=== PATIENT | male | born 1955 | race Caucasian/White ===

== ENCOUNTER 2021-01-18 22:15 | Inpatient (IN) | payer MEDICARE ==
[~2021-01-18] VITALS: Ht 180.3 cm; Wt 52.2 kg
[2021-01-18 22:39] LABS: BASOPHILS % (AUTO) 0.3 % (0.0-5.0); EOSINOPHILS % (AUTO) 0.3 % (0.0-8.0); HEMATOCRIT 47.9 % (42-54); LYMPHOCYTES % (AUTO) 3.1 % (21.0-51.0); MEAN CORPUSCULAR HEMOGLOBIN 30.5 pg (27.0-33.0); MEAN CORPUSCULAR HGB CONC 36.5 g/dL (32.0-36.0); MEAN CORPUSCULAR VOLUME 83.6 fL (79-99); MONOCYTES % (AUTO) 4.4 % (3.0-13.0); NEUTROPHILS % (AUTO) 91.5 % (40.0-77.0); PLATELET COUNT (AUTO) 150 K/uL (130-400); RED BLOOD CELL COUNT(AUTO) 5.73 MIL/uL (4.50-6.20); WHITE BLOOD COUNT (AUTO) 11.7 K/uL (4.8-10.8)
[2021-01-18] MEDS ORDERED: METOCLOPRAMIDE 10 MG/2 ML VIAL ONE (22:44)
[2021-01-18] MEDS ORDERED: ONDANSETRON 4MG INJ ONE (22:44)
[2021-01-18] MEDS ORDERED: 0.9%NACL 50ML 50 ML IV ONE (22:45)
[2021-01-18 22:47] LABS: ABG BASE EXCESS 1.5 mmol/L (-2.0-3.0); ABG HCO3 25.9 mmol/L (21.0-28.0); ABG OXYGEN SATURATION 93.1 % (95.0-99.0); ABG PCO2 40 mmHg (35-48)
[2021-01-18 22:56] LABS: CREATININE 0.8 mg/dL (0.5-1.5); POTASSIUM 3.4 mmol/L (3.5-5.1)
[2021-01-18 22:58] LABS: INR 1.1 (0.85-1.15); PROTHROMBIN TIME 11.9 SEC (9.6-11.6)
[2021-01-18 23:00] LABS: PARTIAL THROMBOPLASTIN TIME 22.4 SEC (26.3-35.5)
[2021-01-18 23:01] LABS: ALBUMIN 4.2 g/dL (3.5-5.0); BILIRUBIN,TOTAL 1.5 mg/dL (0.2-1.0); TOTAL PROTEIN, SERUM 7.7 g/dL (6.0-8.3)
[2021-01-19] MEDS ORDERED: ASPIRIN 325 MG TABLET ONE (00:04)
[2021-01-19 00:24] LABS: APPEARANCE,URINE Clear (CLEAR); BILIRUBIN,URINE Negative (NEGATIVE); COLOR,URINE Yellow (YELLOW); GLUCOSE, URINE (UA) >=1000 mg/dL (NEGATIVE); KETONES,URINE 40 mg/dL (NEGATIVE); LEUKOCYTE ESTERASE ,URINE Negative (NEGATIVE); NITRATE,URINE Negative (NEGATIVE); OCCULT BLOOD,URINE Negative (NEGATIVE); PROTEIN,URINE Negative (NEGATIVE); UROBILINOGEN,URINE 0.2 mg/dL (0.2-1.0)
[2021-01-19 00:30] LABS: CRP QUANTITATIVE 14.3 mg/L (0.00-9.0)
[2021-01-19 00:36] LABS: BACTERIA,URINE None Seen /HPF (None Seen); RBC,URINE None Seen /HPF (0-1); WBC,URINE None Seen /HPF (0-1)
[2021-01-19] MEDS ORDERED: ONDANSETRON 4MG INJ IV PRN (01:15)
[2021-01-19] MEDS ORDERED: MAG/ALUM/SIMETH 30 ML UDCUP PO PRN (01:15)
[2021-01-19] MEDS ORDERED: LACTULOSE 20 GM/30 ML UDCUP PO PRN (01:15)
[2021-01-19] MEDS ORDERED: ALBUTEROL 0.083% 2.5 MG/3 ML INH IH PRN (01:15)
[2021-01-19] MEDS ORDERED: ERGOCALCIFEROL (VITAMIN D2) 50,000 UNIT CAPSULE PO ONE (01:15)
[2021-01-19] MEDS ORDERED: GUAIFENESIN-DM 200/20 MG 10 ML PO PRN (01:15)
[2021-01-19] MEDS ORDERED: DiphenhydrAMINE HCL 50 MG/ML VIAL IV PRN (01:15)
[2021-01-19] MEDS: LACTATED RINGERS 1000ML 1,000 ML IV SCH ×2 (01:15→11:45)
[2021-01-19] MEDS ORDERED: ACETAMINOPHEN 325 MG TAB PO PRN (01:15)
[2021-01-19] MEDS ORDERED: DIPHENHYDRAMINE HCL 25 MG CAPSULE PO PRN (01:15)
[2021-01-19] MEDS: DOXYCYCLINE 100MG+NS 250ML IV SCH ×2 (01:15→12:27)
[2021-01-19] MEDS ORDERED: NITROGLYCERIN 0.4 MG SL TAB SL PRN (01:15)
[2021-01-19] MEDS ORDERED: IOHEXOL-350 75 ML VIAL IV ONE (01:48)
[2021-01-19] MEDS ORDERED: ERGOCALCIFEROL (VITAMIN D2) 50,000 UNIT CAPSULE ONE (01:54)
[2021-01-19] MEDS ORDERED: DOXYCYCLINE 100MG+NS 250ML 250 ML IV ONE (01:55)
[2021-01-19 03:50] VITALS: BP 141/79
[2021-01-19] MEDS ORDERED: AMLO-257 PO (05:02)
[2021-01-19] MEDS ORDERED: NAPR-1141 PO (05:02)
[2021-01-19] MEDS ORDERED: HYDR-4153 PO (05:02)
[2021-01-19] MEDS ORDERED: FLUO40CA7 PO (05:02)
[2021-01-19] MEDS ORDERED: LISI1TAB53 PO (05:02)
[2021-01-19] MEDS ORDERED: PROP10TA10 PO (05:02)
[2021-01-19] MEDS ORDERED: [UNRECOGNIZED DRUG - CODE] PO (05:02)
[2021-01-19 06:15] LABS: BASOPHILS % (AUTO) 0.2 % (0.0-5.0); EOSINOPHILS % (AUTO) 1.3 % (0.0-8.0); HEMATOCRIT 43.7 % (42-54); LYMPHOCYTES % (AUTO) 3.8 % (21.0-51.0); MEAN CORPUSCULAR HEMOGLOBIN 30.4 pg (27.0-33.0); MEAN CORPUSCULAR HGB CONC 35.7 g/dL (32.0-36.0); MEAN CORPUSCULAR VOLUME 85.2 fL (79-99); MONOCYTES % (AUTO) 4.3 % (3.0-13.0); NEUTROPHILS % (AUTO) 90.1 % (40.0-77.0); PLATELET COUNT (AUTO) 148 K/uL (130-400); RED BLOOD CELL COUNT(AUTO) 5.13 MIL/uL (4.50-6.20); RED CELL DISTRIBUTION WIDTH 12.1 % (11.0-15.5); WHITE BLOOD COUNT (AUTO) 10.8 K/uL (4.8-10.8)
[2021-01-19 06:30] LABS: ALBUMIN 3.2 g/dL (3.5-5.0); CREATININE 1.1 mg/dL (0.5-1.5); POTASSIUM 3.4 mmol/L (3.5-5.1); TOTAL PROTEIN, SERUM 6.2 g/dL (6.0-8.3)
[2021-01-19] MEDS: INSULIN HUMULIN R 100 UNIT/ML 3ML SQ SCH ×4 (06:31→20:39)
[2021-01-19] MEDS ORDERED: LIDOCAINE HCL-MPF 1% 2ML VIAL IV PRN (06:45)
[2021-01-19] MEDS ORDERED: POTASSIUM CHLORIDE 20MEQ/100ML 100 ML IV PRN (06:45)
[2021-01-19] MEDS ORDERED: KCL 20 MEQ ERTAB PO PRN (06:45)
[2021-01-19 08:00] VITALS: BP 121/69
[2021-01-19] MEDS: FAMOTIDINE 20MG VIAL IV SCH ×2 (08:33→20:13)
[2021-01-19] MEDS: ASCORBIC ACID 500 MG TAB PO SCH (08:33)
[2021-01-19] MEDS: ACETYLCYSTEINE 600 MG CAPSULE PO SCH ×2 (08:33→20:14)
[2021-01-19] MEDS: ZINC SULFATE 220 CAPSULE PO SCH (08:33)
[2021-01-19] MEDS: ENOXAPARIN SODIUM 40 MG/0.4 ML SYRINGE SQ SCH (08:33)
[2021-01-19] MEDS ORDERED: IOHEXOL 350 MG/ML 100ML INFUS..BTL IV ONE (09:40)
[2021-01-19 12:00] VITALS: BP 132/87
[2021-01-19] MEDS: POTASSIUM CHLORIDE 10% ELIXIR 20 MEQ/15 ML UDCUP PO PRN (12:04)
[2021-01-19 16:00] VITALS: BP 128/71
[2021-01-19 19:46] VITALS: BP 130/58
[2021-01-19] MEDS: PROPRANOLOL HCL 10 MG TAB PO SCH (20:13)
[2021-01-19] MEDS: HYDRALAZINE 25MG TABLET PO SCH (20:13)
[2021-01-19] MEDS: ACETAMINOPHEN 325 MG TAB PO PRN (22:39)
[2021-01-19 23:43] VITALS: BP 152/72
[2021-01-20] MEDS: DOXYCYCLINE 100MG+NS 250ML IV SCH ×2 (00:43→12:47)
[2021-01-20 04:00] VITALS: BP 148/74
[2021-01-20 04:48] LABS: BASOPHILS % (AUTO) 0.3 % (0.0-5.0); EOSINOPHILS % (AUTO) 0.9 % (0.0-8.0); HEMATOCRIT 40.5 % (42-54); LYMPHOCYTES % (AUTO) 19.8 % (21.0-51.0); MEAN CORPUSCULAR HEMOGLOBIN 29.7 pg (27.0-33.0); MEAN CORPUSCULAR HGB CONC 35.1 g/dL (32.0-36.0); MEAN CORPUSCULAR VOLUME 84.7 fL (79-99); MONOCYTES % (AUTO) 10.8 % (3.0-13.0); NEUTROPHILS % (AUTO) 67.9 % (40.0-77.0); PLATELET COUNT (AUTO) 131 K/uL (130-400); RED BLOOD CELL COUNT(AUTO) 4.78 MIL/uL (4.50-6.20); WHITE BLOOD COUNT (AUTO) 5.8 K/uL (4.8-10.8)
[2021-01-20 05:14] LABS: ALBUMIN 2.9 g/dL (3.5-5.0); BILIRUBIN,TOTAL 0.8 mg/dL (0.2-1.0); CREATININE 0.9 mg/dL (0.5-1.5); TOTAL PROTEIN, SERUM 5.7 g/dL (6.0-8.3)
[2021-01-20 05:15] LABS: POTASSIUM 2.9 mmol/L (3.5-5.1)
[2021-01-20] MEDS: POTASSIUM CHLORIDE 10% ELIXIR 20 MEQ/15 ML UDCUP PO SCH (05:31)
[2021-01-20] MEDS ORDERED: MAGNESIUM 2GM PREMIX 50ML 50 ML IV PRN (05:45)
[2021-01-20] MEDS ORDERED: MAGNESIUM 2GM PREMIX 50ML 50 ML IV ONE (05:48)
[2021-01-20] MEDS: INSULIN HUMULIN R 100 UNIT/ML 3ML SQ SCH ×4 (06:44→21:00)
[2021-01-20 08:00] VITALS: BP 150/86
[2021-01-20] MEDS: PROPRANOLOL HCL 10 MG TAB PO SCH ×2 (09:00→20:21)
[2021-01-20] MEDS: FAMOTIDINE 20MG VIAL IV SCH ×2 (09:19→20:20)
[2021-01-20] MEDS: ACETYLCYSTEINE 600 MG CAPSULE PO SCH ×2 (09:19→20:21)
[2021-01-20] MEDS: AMLODIPINE 5 MG TAB PO SCH (09:20)
[2021-01-20] MEDS: FLUOXETINE HCL 20 MG CAPSULE PO SCH (09:20)
[2021-01-20] MEDS: ASCORBIC ACID 500 MG TAB PO SCH (09:20)
[2021-01-20] MEDS: ZINC SULFATE 220 CAPSULE PO SCH (09:20)
[2021-01-20] MEDS: ENOXAPARIN SODIUM 40 MG/0.4 ML SYRINGE SQ SCH (09:21)
[2021-01-20] MEDS: HYDRALAZINE 25MG TABLET PO SCH ×2 (09:21→20:21)
[2021-01-20 12:00] VITALS: BP 134/81
[2021-01-20 12:08] LABS: CREATININE 0.8 mg/dL (0.5-1.5); POTASSIUM 3.8 mmol/L (3.5-5.1)
[2021-01-20] MEDS: POTASSIUM CHLORIDE 10% ELIXIR 20 MEQ/15 ML UDCUP PO PRN (15:18)
[2021-01-20] MEDS ORDERED: AZITHROMYCIN 250 MG TABLET PO SCH (15:30)
[2021-01-20 16:00] VITALS: BP 143/78
[2021-01-20] MEDS: LOPERAMIDE 1 MG/7.5 ML UDCUP PO SCH (17:17)
[2021-01-20 20:54] VITALS: BP 140/78
[2021-01-20 23:33] VITALS: BP 120/65
[2021-01-21 03:49] VITALS: BP 128/69
[2021-01-21] MEDS: POTASSIUM CHLORIDE 10% ELIXIR 20 MEQ/15 ML UDCUP PO SCH (05:02)
[2021-01-21 05:25] LABS: BASOPHILS % (AUTO) 0.2 % (0.0-5.0); HEMATOCRIT 40.3 % (42-54); LYMPHOCYTES % (AUTO) 21.5 % (21.0-51.0); MEAN CORPUSCULAR HEMOGLOBIN 30.4 pg (27.0-33.0); MEAN CORPUSCULAR HGB CONC 35.7 g/dL (32.0-36.0); MEAN CORPUSCULAR VOLUME 85.2 fL (79-99); MONOCYTES % (AUTO) 13.8 % (3.0-13.0); NEUTROPHILS % (AUTO) 63.2 % (40.0-77.0); PLATELET COUNT (AUTO) 133 K/uL (130-400); RED BLOOD CELL COUNT(AUTO) 4.73 MIL/uL (4.50-6.20)
[2021-01-21] MEDS: INSULIN HUMULIN R 100 UNIT/ML 3ML SQ SCH ×4 (05:27→21:00)
[2021-01-21 05:45] LABS: BILIRUBIN,TOTAL 0.9 mg/dL (0.2-1.0); CREATININE 0.9 mg/dL (0.5-1.5); MAGNESIUM 1.8 mg/dL (1.80-2.40); POTASSIUM 3.8 mmol/L (3.5-5.1); TOTAL PROTEIN, SERUM 6.1 g/dL (6.0-8.3)
[2021-01-21 08:00] VITALS: BP 135/70
[2021-01-21] MEDS: ZINC SULFATE 220 CAPSULE PO SCH (08:01)
[2021-01-21] MEDS: HYDRALAZINE 25MG TABLET PO SCH ×2 (08:01→22:06)
[2021-01-21] MEDS: FAMOTIDINE 20MG VIAL IV SCH ×2 (08:02→22:06)
[2021-01-21] MEDS: ASCORBIC ACID 500 MG TAB PO SCH (08:02)
[2021-01-21] MEDS: FLUOXETINE HCL 20 MG CAPSULE PO SCH (08:02)
[2021-01-21] MEDS: PROPRANOLOL HCL 10 MG TAB PO SCH ×2 (08:02→21:00)
[2021-01-21] MEDS: AMLODIPINE 5 MG TAB PO SCH (08:02)
[2021-01-21] MEDS: ACETYLCYSTEINE 600 MG CAPSULE PO SCH ×2 (08:02→22:06)
[2021-01-21] MEDS: ENOXAPARIN SODIUM 40 MG/0.4 ML SYRINGE SQ SCH (08:03)
[2021-01-21 12:00] VITALS: BP 118/70
[2021-01-21] MEDS: LOPERAMIDE 1 MG/7.5 ML UDCUP PO SCH (15:30)
[2021-01-21 16:00] VITALS: BP 139/69
[2021-01-21] MEDS: ACETAMINOPHEN 325 MG TAB PO PRN (18:10)
[2021-01-21 20:00] VITALS: BP 132/71
[2021-01-22] VITALS: BP 133/70
[2021-01-22] MEDS ORDERED: TEMAZEPAM 7.5 MG CAPSULE PO ONE ×2 (00:15→00:23)
[2021-01-22 03:28] VITALS: BP 130/61
[2021-01-22] MEDS: POTASSIUM CHLORIDE 10% ELIXIR 20 MEQ/15 ML UDCUP PO SCH (03:47)
[2021-01-22] MEDS: INSULIN HUMULIN R 100 UNIT/ML 3ML SQ SCH ×2 (05:31→11:30)
[2021-01-22 07:53] VITALS: BP 158/94
[2021-01-22] MEDS: PROPRANOLOL HCL 10 MG TAB PO SCH (09:00)
[2021-01-22] MEDS: ENOXAPARIN SODIUM 40 MG/0.4 ML SYRINGE SQ SCH (09:14)
[2021-01-22] MEDS: FAMOTIDINE 20MG VIAL IV SCH (09:14)
[2021-01-22] MEDS: HYDRALAZINE 25MG TABLET PO SCH (09:17)
[2021-01-22] MEDS: ACETYLCYSTEINE 600 MG CAPSULE PO SCH (09:17)
[2021-01-22] MEDS: FLUOXETINE HCL 20 MG CAPSULE PO SCH (09:17)
[2021-01-22] MEDS: AMLODIPINE 5 MG TAB PO SCH (09:17)
[2021-01-22] MEDS: ASCORBIC ACID 500 MG TAB PO SCH (09:18)
[2021-01-22] MEDS: ZINC SULFATE 220 CAPSULE PO SCH (09:18)
[2021-01-22 12:07] VITALS: BP 134/86
[2021-01-22] MEDS: LOPERAMIDE 1 MG/7.5 ML UDCUP PO SCH (15:30)
== END 2021-01-22 16:05 | disposition home or self-care (01) | DRG 391 ==
LOC: EDH 22:15 → EDHIP 01-19 01:11 → 2AH 01-19 02:50 → 3BH 01-20 17:54
PROVIDERS: ADMIT Family Medicine; ATTEND Family Medicine
DX: K52.9 Noninfective gastroenteritis and colitis, unspecified (principal); J96.01 Acute respiratory failure with hypoxia; Z68.1 Body mass index [BMI] 19.9 or less, adult; I10 Essential (primary) hypertension; E11.9 Type 2 diabetes mellitus without complications; Z20.822 Contact with and (suspected) exposure to COVID-19; E66.9 Obesity, unspecified; E78.5 Hyperlipidemia, unspecified; E86.0 Dehydration; E87.6 Hypokalemia; G47.33 Obstructive sleep apnea (adult) (pediatric); K80.20 Calculus of gallbladder without cholecystitis without obstruction; M19.90 Unspecified osteoarthritis, unspecified site; Z83.3 Family history of diabetes mellitus; Z96.641 Presence of right artificial hip joint; R07.9 Chest pain, unspecified; R53.81 Other malaise; Z79.899 Other long term (current) drug therapy; Z79.84 Long term (current) use of oral hypoglycemic drugs
CPT/HCPCS: 36415; 36600; 71045; 71260; 74177; 80048; 80053; 81001; 82803; 82948; 83605; 83615; 83690; 83735; 83880; 84145; 84484; 85025; 85378; 85610; 85730; 86140; 87040; 87177; 87426; 87507; 87804; 93005; 93970; G0378; J1650; J1815; J2405; J2765; J3475; J3490; J7120; Q9967; U0003

== ENCOUNTER → 2021-11-10 | Emergency (ER) | payer MEDICARE ==
[~2021-11-10] MED LIST: AMLO-257 PO; FLUO40CA7 PO; HYDR-4153 PO; LISI1TAB53 PO; NAPR-1141 PO; PROP10TA10 PO; [UNRECOGNIZED DRUG - CODE] PO
== END ==
LOC: EDH 13:32
DX: R09.81 Nasal congestion (principal); Z53.21 Procedure and treatment not carried out due to patient leaving prior to being seen by health care provider

== ENCOUNTER → 2024-11-08 | Outpatient (CLI) | payer MEDICARE ==
[~2024-11-08] MED LIST changes: -HYDR-4153 PO; +HYDR25TA67 PO
[2024-11-08 12:29] LABS: BASOPHILS # (AUTO) 0.03 K/uL (0.00-0.20); BASOPHILS % (AUTO) 0.3 % (0.0-5.0); EOSINOPHILS # (AUTO) 0.09 K/uL (0.00-0.70); EOSINOPHILS % (AUTO) 0.8 % (0.0-8.0); HEMATOCRIT 47.8 % (42-54); LYMPHOCYTES # (AUTO) 2.1 K/uL (1.0-4.8); LYMPHOCYTES % (AUTO) 18.6 % (21.0-51.0); MEAN CORPUSCULAR HEMOGLOBIN 29.9 pg (27.0-33.0); MEAN CORPUSCULAR HGB CONC 34.7 g/dL (32.0-36.0); MEAN CORPUSCULAR VOLUME 86.1 fL (79-99); MONOCYTES # (AUTO) 0.8 K/uL (0.1-1.0); MONOCYTES % (AUTO) 6.8 % (3.0-13.0); NEUTROPHILS # (AUTO) 8.2 K/uL (1.8-7.7); NEUTROPHILS % (AUTO) 72.6 % (40.0-77.0); NUCLEATED RED BLOOD CELLS 0.2 % (0.0-0.19); PLATELET COUNT (AUTO) 189 K/uL (130-400); RED BLOOD CELL COUNT(AUTO) 5.55 MIL/uL (4.50-6.20); RED CELL DISTRIBUTION WIDTH 12.4 % (11.0-15.5); WHITE BLOOD COUNT (AUTO) 11.2 K/uL (4.8-10.8)
[2024-11-08 12:41] LABS: ALBUMIN 3.3 g/dL (3.5-5.0); BILIRUBIN,TOTAL 0.9 mg/dL (0.2-1.0); CREATININE 1.1 mg/dL (0.5-1.3); POTASSIUM 3.8 mmol/L (3.5-5.1); TOTAL PROTEIN, SERUM 6.2 g/dL (6.0-8.3)
[2024-11-08 13:33] LABS: ERYTHROCYTE SEDIMENTATION RATE 3 MM/HR (0-20)
[2024-11-10 08:11] LABS: RHEUMATOID ARTHRITIS FACTOR 10.5 IU/mL (<14.0)
== END | disposition home or self-care (01) ==
LOC: LAB 10:25
PROVIDERS: ATTEND Internal Medicine Cardiovascular Disease
DX: M31.6 Other giant cell arteritis (principal); R07.9 Chest pain, unspecified
CPT/HCPCS: 36415; 80053; 85025; 85651; 86038; 86140; 86200; 86431

== ENCOUNTER → 2024-11-17 | Outpatient (CLI) | payer MEDICARE, SELFPAY ==
[2024-11-17] MEDS: REGADENOSON 0.4 MG/5 ML PF SYG IVP ONE (15:51)
== END | disposition home or self-care (01) ==
LOC: SHCH 08:29
PROVIDERS: ATTEND Internal Medicine Cardiovascular Disease
DX: I49.3 Ventricular premature depolarization (principal); R07.9 Chest pain, unspecified; I25.10 Atherosclerotic heart disease of native coronary artery without angina pectoris
CPT/HCPCS: 78452; 93017; J2785; A9500 ×2

== ENCOUNTER 2024-12-13 07:17 | Day surgery (SDC) | payer MEDICARE ==
[2024-12-11 12:07] LABS: BASOPHILS # (AUTO) 0.02 K/uL (0.00-0.20); BASOPHILS % (AUTO) 0.2 % (0.0-5.0); EOSINOPHILS # (AUTO) 0.01 K/uL (0.00-0.70); EOSINOPHILS % (AUTO) 0.1 % (0.0-8.0); HEMATOCRIT 43.1 % (42-54); IMMATURE GRANULOCYTE ABSOLUTE 0.09 K/uL (0-1); LYMPHOCYTES # (AUTO) 0.8 K/uL (1.0-4.8); LYMPHOCYTES % (AUTO) 8.4 % (21.0-51.0); MEAN CORPUSCULAR HEMOGLOBIN 30.4 pg (27.0-33.0); MEAN CORPUSCULAR HGB CONC 35.5 g/dL (32.0-36.0); MEAN CORPUSCULAR VOLUME 85.5 fL (79-99); MONOCYTES # (AUTO) 0.5 K/uL (0.1-1.0); NEUTROPHILS # (AUTO) 7.5 K/uL (1.8-7.7); NEUTROPHILS % (AUTO) 84.3 % (40.0-77.0); PLATELET COUNT (AUTO) 159 K/uL (130-400); RED BLOOD CELL COUNT(AUTO) 5.04 MIL/uL (4.50-6.20); RED CELL DISTRIBUTION WIDTH 13.3 % (11.0-15.5); WHITE BLOOD COUNT (AUTO) 8.9 K/uL (4.8-10.8)
[2024-12-11 12:22] LABS: CREATININE 0.9 mg/dL (0.5-1.3)
[2024-12-11 12:30] LABS: INR 0.94 (0.85-1.15); PROTHROMBIN TIME 10.6 SEC (9.6-11.6)
[2024-12-11 12:31] LABS: B-TYPE NATRIURETIC PEPTIDE 30 pg/mL (0-100); PARTIAL THROMBOPLASTIN TIME 20.5 SEC (26.3-35.5)
[2024-12-11 12:43] LABS: APPEARANCE,URINE CLEAR (CLEAR); BILIRUBIN,URINE NEGATIVE (NEGATIVE); COLOR,URINE LIGHT-YELLOW (YELLOW); GLUCOSE, URINE (UA) >=1000 mg/dL (NEGATIVE); KETONES,URINE NEGATIVE (NEGATIVE); LEUKOCYTE ESTERASE ,URINE 25 Leu/uL (NEGATIVE); NITRATE,URINE NEGATIVE (NEGATIVE); OCCULT BLOOD,URINE NEGATIVE (NEGATIVE); UROBILINOGEN,URINE 0.2 mg/dL (0.2-1.0)
[2024-12-11 12:45] VITALS: BP 179/96; PULSE 58; RESP 14; TEMP 98.2
[2024-12-11 12:46] LABS: ADD UA MICROSCOPIC YES; PROTEIN,URINE NEGATIVE (NEGATIVE)
[2024-12-11 12:47] LABS: BACTERIA,URINE RARE /HPF (None Seen); MUCUS,URINE RARE LPF (None Seen)
--- NOTE | 2024-12-11 13:15 | EKG ---
[facility] Test Date: 2024-12-11 Test Time: 12:55:46 Pat Name: KATHI CONNORS Department: [facility] Room: Gender: M Ophthalmic Surgeon: [id number] : 1955 Requested By: RUDY RIVERS Order Number: [id number] Reading MD: Benedicto Pittman Measurements Intervals [place] Rate: 54 P: 5 GA: 219 QRS: -2 QRSD: 88 T: 3 QT: 433 QTc: 411 Interpretive Statements Sinus rhythm Borderline prolonged GA interval Low voltage, precordial leads Compared to ECG 01/19/2021 02:06:12 Low QRS voltage now present T-wave abnormality no longer present Electronically Signed On 12-11-2024 16:46:31 EXTRUDER by Benedicto Pittman Please click the below link to view image of tracing.
--- NOTE | 2024-12-11 13:42 | HMCIMG ---
CHEST 1VW HISTORY: Preop COMPARISON: None FINDINGS: A frontal projection of the chest was obtained. Prominent interstitial markings are seen with possible superimposed infiltrates. The heart is borderline enlarged. Degenerative changes are seen. No evidence of aortic calcification is seen. IMPRESSION: 1. Prominent interstitial markings are seen with possible superimposed infiltrates.
--- NOTE | 2024-12-12 13:42 | NUR ---
RE: CXR REPORTED CXR RESULTS TO DR RIVERS, PATIENT ASYMPTOMATIC. NO NEW ORDERS RECEIVED.
[~2024-12-13] VITALS: Ht 177.8 cm; Wt 110.6 kg
[~2024-12-13 07:17] MED LIST changes: -AMLO-257 PO; +AMLO-258 PO; +ASPI-1443 PO; +CLOP75TA32 PO; +GLIM1TAB56 PO; +HYDR25TA PO; -HYDR25TA67 PO; +HYDR50TA37 PO; -LISI1TAB53 PO; +LOSA50TA64 PO; -NAPR-1141 PO; +NITR0.4T50 SL; +POTA-202 PO; +PRED20TA3 PO; -PROP10TA10 PO; +ROSU40TA88 PO; +TRAM100C3 PO; -[UNRECOGNIZED DRUG - CODE] PO
[2024-12-13] MEDS ORDERED: 0.9%NACL 1000ML 1,000 ML IV SCH (07:30)
[2024-12-13 07:50] VITALS: BP 154/93; PULSE 65; RESP 18; TEMP 97.2
--- NOTE | 2024-12-13 14:25 | NUR ---
DR. RIVERS CAME AND SPOKE WITH PT ABOUT RE SCHEDULING HEART CATH FOR ANOTHER DAY PT AGREED TO RE SCHEDULE
== END 2024-12-13 14:40 | disposition home or self-care (01) ==
LOC: DAH 07:17
PROVIDERS: ATTEND Internal Medicine Cardiovascular Disease
DX: R94.39 Abnormal result of other cardiovascular function study (principal); Z53.9 Procedure and treatment not carried out, unspecified reason; R07.9 Chest pain, unspecified; R06.09 Other forms of dyspnea; I10 Essential (primary) hypertension; E66.9 Obesity, unspecified; Z79.899 Other long term (current) drug therapy; Z79.82 Long term (current) use of aspirin; Z95.5 Presence of coronary angioplasty implant and graft; Z97.10 Presence of artificial limb (complete) (partial), unspecified; Z96.649 Presence of unspecified artificial hip joint; Z82.49 Family history of ischemic heart disease and other diseases of the circulatory system; Z68.35 Body mass index [BMI] 35.0-35.9, adult
CPT/HCPCS: 80048; 83880; 85025; 85610; 85730; 81001; 36415; 71045; 93005; 82948; A4223 ×3; A4215; A4222; A4221; A4663; A4216; A4606